=== PATIENT | male | born 1995 | race Caucasian/White ===

== ENCOUNTER 2022-03-12 18:16 | Inpatient (IN) | payer BC ==
[2022-03-12 19:20] LABS: #Basophils 0.1 thou/uL (0.0-0.2); #Eosinphils 0.1 thou/uL (0.0-0.7); #Lymphocytes 2.1 thou/uL (1.20-3.40); #Monocytes 0.6 thou/uL (0.11-0.59); #Neutrophils 9.4 thou/uL (1.40-6.50); %Basophils 0.4 % (0.0-1.0); %Eosinophils 0.6 % (0.0-10.0); %Lymphocytes 17.3 % (21.0-51.0); %Monocytes 4.6 % (0.0-10.0); %Neutrophils 77.1 % (42.0-75.0); Hemoglobin 11.1 g/dL (14.0-18.0); Mean Corpuscular HGB CONC 34.1 g/dL (32.0-36.0); Mean Corpuscular Hemoglobin 32.6 pg (27.0-31.0); Mean Corpuscular Volume 95.4 fl (78.0-98.0); Mean Platelet Volume 8.6 fL (7.4-10.4); Platelet Count 199 10x3/uL (130-400); RBC Distribution Width 11.5 % (11.5-14.5); White Blood Cell (WBC) Count 12.2 10x3/uL (4.8-10.8)
[2022-03-12 19:30] LABS: INR-International Normal Ratio 1.1
[2022-03-12 19:31] LABS: PTT 24.1 sec (22.9-36.1)
[2022-03-12 19:48] LABS: ALT (SGPT) 27 U/L (8-55); AST (SGOT) 33 U/L (5-34); Alkaline Phosphatase 67 U/L (40-110); Anion Gap 10 mmol/L (10-20); BUN (Urea Nitrogen) 27 mg/dL (8.9-20.6); Bilirubin, Total 0.3 mg/dL (0.2-1.2); Calc. Creatinine Clearance 0 mL/min (70-130); Calcium 8.9 mg/dL (7.8-10.44); Carbon Dioxide 25 mmol/L (22-29); Chloride 110 mmol/L (98-107); Estimated GFR 79; Globulin 2.2 g/dL (2.4-3.5); Glucose 111 mg/dL (70-105); Potassium 4.9 mmol/L (3.5-5.1); Protein, Total 6.2 g/dL (6.0-8.3); Sodium 140 mmol/L (136-145)
[2022-03-12 23:10] VITALS: BMI 29.4
[2022-03-12] MEDS ORDERED: GoLYTELY 4,000 ml Bottle PO SCH (23:45)
[2022-03-13] MEDS: Sodium Chloride 0.9% 1,000 ML IV SCH ×2 (00:24→04:30)
[2022-03-13] MEDS ORDERED: Acetaminophen 325 MG TAB PO PRN ×2 (00:30→17:10)
[2022-03-13] MEDS ORDERED: Ondansetron ODT 4 MG TAB SL PRN (00:30)
[2022-03-13] MEDS ORDERED: Ondansetron PF 4 MG/2 ML Vial IVP PRN ×2 (00:30→17:10)
[2022-03-13 01:02] LABS: SARS-CoV-2 NAA Rapid Test Not Detected (NotDetected)
[2022-03-13] MEDS: Sodium Chloride 0.45% 1,000 ML IV SCH ×2 (11:57→20:16)
[2022-03-13] MEDS ORDERED: Pantoprazole 40 MG VIAL IVP SCH (12:00)
[2022-03-13] MEDS ORDERED: Ondansetron HCl/PF 4 MG/2 ML Vial IVP PRN (16:08)
[2022-03-13] MEDS ORDERED: Promethazine HCl 25 MG/ML VIAL IM PRN (16:08)
[2022-03-13] MEDS ORDERED: Fentanyl 100 MCG/2 ML VIAL ONE (16:10)
[2022-03-13] MEDS ORDERED: ePHEDrine 50 MG/ML VIAL ONE (16:16)
[2022-03-13] MEDS ORDERED: PROPOFOL 200 MG/20 ML VIAL ONE (16:16)
[2022-03-13] MEDS ORDERED: Lidocaine 1% PF 5 ML VIAL ONE (16:16)
[2022-03-13] MEDS ORDERED: Senokot S 8.6-50 MG TAB PO PRN (17:10)
[2022-03-13] MEDS ORDERED: Calcium Carbonate 500 MG ChewTAB PO PRN (17:10)
[2022-03-13] MEDS ORDERED: Ondansetron ODT 4 MG TAB PO PRN (17:10)
[2022-03-13 19:14] VITALS: TEMP 97.5
[2022-03-13] MEDS ORDERED: Melatonin 3 MG TAB PO PRN (19:34)
[2022-03-13] MEDS: Pantoprazole 40 MG VIAL IVP SCH (20:17)
[2022-03-14] MEDS: Sodium Chloride 0.45% 1,000 ML IV SCH (02:23)
[2022-03-14 06:56] LABS: #Eosinphils 0.1 thou/uL (0.0-0.7); #Lymphocytes 2.6 thou/uL (1.20-3.40); #Monocytes 0.5 thou/uL (0.11-0.59); #Neutrophils 2.3 thou/uL (1.40-6.50); %Basophils 0.6 % (0.0-1.0); %Lymphocytes 46.3 % (21.0-51.0); %Monocytes 9.3 % (0.0-10.0); %Neutrophils 41.9 % (42.0-75.0); Hemoglobin 9.4 g/dL (14.0-18.0); Mean Corpuscular HGB CONC 35.6 g/dL (32.0-36.0); Mean Corpuscular Hemoglobin 33.8 pg (27.0-31.0); Mean Corpuscular Volume 94.9 fl (78.0-98.0); Mean Platelet Volume 8.4 fL (7.4-10.4); Platelet Count 157 10x3/uL (130-400); RBC Distribution Width 11.4 % (11.5-14.5); Red Blood Cell (RBC) Count 2.78 mill/uL (4.70-6.10); White Blood Cell (WBC) Count 5.5 10x3/uL (4.8-10.8)
[2022-03-14 07:16] LABS: Anion Gap 9 mmol/L (10-20); BUN (Urea Nitrogen) 12 mg/dL (8.9-20.6); Calc. Creatinine Clearance 133 mL/min (70-130); Calcium 8.7 mg/dL (7.8-10.44); Carbon Dioxide 27 mmol/L (22-29); Chloride 108 mmol/L (98-107); Estimated GFR 90; Glucose 89 mg/dL (70-105); Iron 107 ug/dL (65-175); Iron Binding Capacity, Total 239 mcg/dL (261-462); Potassium 4.6 mmol/L (3.5-5.1); Sodium 139 mmol/L (136-145)
[2022-03-14 08:11] VITALS: BP 89/53
[2022-03-14] MEDS: Pantoprazole 40 MG VIAL IVP SCH (08:23)
[2022-03-14 12:59] LABS: Hemoglobin 10.5 g/dL (14.0-18.0)
== END 2022-03-14 14:16 | disposition home or self-care (01) | DRG 378 ==
LOC: ERS 18:16 → INTOOBSV 20:10 → T4-A 20:10 → OBSVTOIN 03-14 09:16
PROVIDERS: ADMIT Internal Medicine; ATTEND Internal Medicine
PROC: 0DJ08ZZ Inspection of Upper Intestinal Tract, Via Natural or Artificial Opening Endoscopic (ICD-10-PCS; principal; 2022-03-13)
PROC: 0DJD8ZZ Inspection of Lower Intestinal Tract, Via Natural or Artificial Opening Endoscopic (ICD-10-PCS; 2022-03-13)
DX: K92.1 Melena (principal); D62 Acute posthemorrhagic anemia; Z20.822 Contact with and (suspected) exposure to COVID-19; E86.0 Dehydration; Z90.89 Acquired absence of other organs; Z80.0 Family history of malignant neoplasm of digestive organs; Z83.71 Family history of colonic polyps; Z83.79 Family history of other diseases of the digestive system
CPT/HCPCS: 36415; 80048; 80053; 82274; 82728; 83540; 83550; 85025; 85610; 85730; 86850; 86900; 86901; 96374; 96376; 99285; C9113; G0378; J2704; J3010; J3490; J7050; U0002